=== PATIENT | male | born 1985 | race Caucasian/White ===

== ENCOUNTER 2020-05-24 00:25 | Emergency (ER) | payer SELFPAY ==
[~2020-05-24] VITALS: Ht 185.4 cm; Wt 102.1 kg
[2020-05-24 00:26] VITALS: BP 122/83; Ht 185.4 cm; Wt 102.1 kg
== END 2020-05-24 01:28 | disposition left against medical advice (07) ==
LOC: ED 00:25
DX: Z53.21 Procedure and treatment not carried out due to patient leaving prior to being seen by health care provider (principal)